=== PATIENT | male | born 1990 | race Caucasian/White ===

== ENCOUNTER 2016-12-18 15:53 | Emergency (ER) | payer BC ==
[~2016-12-18] VITALS: Ht 175.3 cm; Wt 68.0 kg
[2016-12-18 15:55] VITALS: BP 149/85; PULSE 66; RESP 20; TEMP 98.1; O2SAT 98
--- NOTE | 2016-12-18 16:38 | PD ---
HPI . right foot infection Chief Complaint: Skin Problem Time Seen by Provider: 16:38 Travel History International Travel<30 days: No Contact w/Intl Traveler<30days: No Traveled to known affect area: No History of Present Illness HPI 26-year-old male with no significant medical history other than a right foot injury that he sustained last year without repair here with complaints of a localized cellulitis to the top of his anterior foot. He had some type of injury and is now requiring a foot fusion type of surgery, which he is scheduled to have on Monday in [place]. He is down here on vacation and noticed that a portion of his foot where he previously received steroid injections is red and warm to touch. He also reports some pain in that area. He denies any radiation of pain or issues with other parts of his body. He denies any fever or chills. PFSH Past Medical History Medical History: Denies Significant Hx Social History Tobacco Use: Yes Allergies-Medications (Allergen,Severity, Reaction): Coded Allergies: No Known Allergies (Unverified , 12/18/16) Reported Meds & Prescriptions Reported Meds & Active Scripts Active Bactroban Topical (Mupirocin) 2% Oint 1 Appl TOPICAL BID Bactrim DS (Sulfamethoxazole-Trimethoprim) 800-160 Mg Tab 1 Tab PO BID Review of Systems General / Constitutional: No: Fever Eyes: No: Visual changes HENT: No: Headaches Cardiovascular: No: Chest Pain or Discomfort Respiratory: No: Shortness of Breath Gastrointestinal: No: Abdominal Pain Genitourinary: No: Dysuria Musculoskeletal: Positive: Pain (pain at cellulitis site) Skin: Positive Rash (right anterior foot) Neurologic: No: Weakness Psychiatric: No: Depression Endocrine: No: Polydipsia Hematologic/Lymphatic: No: Easy Bruising Physical Exam Narrative GENERAL: AAO x 3, no acute distress, Well-nourished, well-developed patient. SKIN: Warm and dry. No visible rashes or bruising. right anterior foot: cuneiform area with small quarter sized area of cellulitis with moderate erythema, minimal warmth and no edema. Well circumscribed without streaking or drainage. HEAD: Normocephalic and atraumatic. EYES: No scleral icterus. No injection or drainage. ENT: No nasal drainage noted. Mucous membranes pink. Airway patent. NECK: Supple, trachea midline. No JVD. CARDIOVASCULAR: Regular rate and rhythm without murmurs, gallops, or rubs. RESPIRATORY: Breath sounds equal bilaterally. No accessory muscle use. No rhonchi or rales. GASTROINTESTINAL: Abdomen soft, non-tender, nondistended. EXTREMITIES: No cyanosis or edema. BACK: Nontender without obvious deformity. No CVA tenderness. PSYCH: AAO x 3, normal affect. Data Data Last Documented VS Vital Signs Date Time Temp Pulse Resp B/P Pulse Ox O2 Delivery O2 Flow Rate FiO2 12/18/16 15:55 98.1 66 20 149/85 98 Room Air MDM Medical Decision Making Medical Screen Exam Complete: Yes Emergency Medical Condition: Yes Medical Record Reviewed: Yes (no prior visit) Differential Diagnosis cellulitis, less likely shingles, less likely tinea Narrative Course 26-year-old male with no significant medical history other than a right foot injury that he sustained last year without her here with complaints of a localized cellulitis to the top of his anterior foot. As he had some type of injury and is now requiring a foot fusion type of surgery, which he is scheduled to have on Monday in [place]. He is down here on vacation and noticed that a portion of his foot where he previously received steroid injections is red and warm to touch. He also reports some pain in that area. He denies any radiation of pain or issues with other parts of his body. He denies any fever or chills. Diagnosis Primary Impression: Cellulitis of foot excluding toe Patient Instructions: Cellulitis (ED), General Instructions Additional Instructions: Keep area clean. Wash daily Use topical antibiotic ointment that was provided. Try not to pick at the area or break the skin. Med/Other Pt SpecificInfo: Prescription(s) given Scripts Mupirocin Topical (Bactroban Topical)2% Oint1 Appl TOPICAL BID #1 TUBE Ref 0 Prov:Roula Tolentino MD 12/18/16 Sulfamethoxazole-Trimethoprim (Bactrim DS)800-160 Mg Tab1 Tab PO BID #20 TAB Prov:Roula Tolentino MD 12/18/16 Disposition: 01 DISCHARGE HOME Condition: Stable Shahnaz Peter Dec 18, 2016 16:38
[2016-12-18] MEDS ORDERED: BACT2OIN TOPICAL (16:41)
[2016-12-18] MEDS ORDERED: BACT800T5 PO (16:41)
== END 2016-12-18 16:52 | disposition home or self-care (01) ==
LOC: NEPB 15:53
DX: L03.115 Cellulitis of right lower limb (principal); Z72.0 Tobacco use
CPT/HCPCS: 99283